=== PATIENT | male | born 1940 | race Caucasian/White ===

== ENCOUNTER → 2020-03-15 | Outpatient (REF) | payer MEDICARE, OTHER | LOC: M LAB REF 17:35 | PROVIDERS: ATTEND Physician Assistant | DX: C44.519 Basal cell carcinoma of skin of other part of trunk (principal) | CPT/HCPCS: 11102; 11103; 88305; G0463 ==

== ENCOUNTER → 2023-01-24 | Outpatient (REF) | payer MEDICARE, OTHER | LOC: M SFHCDERM 14:17 | PROVIDERS: ATTEND Physician Assistant | DX: C44.01 Basal cell carcinoma of skin of lip (principal) ==

== ENCOUNTER → 2023-07-25 | Outpatient (REF) | payer MEDICARE, OTHER | LOC: M SFHCDERM 17:45 | PROVIDERS: ATTEND Physician Assistant | DX: C44.41 Basal cell carcinoma of skin of scalp and neck (principal) ==

== ENCOUNTER 2023-12-05 10:43 | Day surgery (SDC) | payer MEDICARE, OTHER ==
[~2023-12-05] VITALS: Ht 172.7 cm; Wt 76.2 kg
[~2023-12-05 10:43] MED LIST: ATEN25TA PO; ATOR1TAB19 PO; BRIM5DRO4; DONE10TA90 PO; MIDAZOLAM INJ 2MG/2ML VIAL As Ordered ONE; OMEP-173 PO; THERTAB52 PO; VITA100093 PO; ZOLO100T PO; fentaNYL 100 MCG/2 ML INJECTION As Ordered ONE
[2023-12-05] MEDS: LIDOCAINE 3.5 % 1ML OPHTH TOPICAL GEL OU ONE (11:28)
[2023-12-05] MEDS: mitoMYcin 0.2 MG/VIAL KIT FOR OPHTHALMIC USE As Ordered ONE (12:39)
[2023-12-05] MEDS: TOBRADEX OPHTH OINT 3.5 GM As Ordered ONE (12:40)
[2023-12-05] MEDS: LIDOCAINE 2% W/EPINEPHRINE 20ML VIAL **PRES FREE As Ordered ONE (12:40)
[2023-12-05] MEDS ORDERED: NALOXONE INJ 0.4MG/1ML VIAL As Ordered ONE (12:46)
[2023-12-05] MEDS ORDERED: flumazeniL 0.5MG/5ML VIAL As Ordered ONE (12:46)
[2023-12-05 13:09] VITALS: BP 158/64; TEMP 97.6; O2SAT 98
== END 2023-12-05 13:50 | disposition home or self-care (01) ==
LOC: M SDC 10:43
PROVIDERS: ATTEND Ophthalmology
DX: H40.1121 Primary open-angle glaucoma, left eye, mild stage (principal); I10 Essential (primary) hypertension; Z79.899 Other long term (current) drug therapy
CPT/HCPCS: 66183; C1783; J2250; J2310; J3010; J7315

== ENCOUNTER 2024-02-06 10:04 | Day surgery (SDC) | payer MEDICARE, OTHER ==
[~2024-02-06] VITALS: Ht 170.2 cm; Wt 73.8 kg
[~2024-02-06 10:04] MED LIST changes: +ACET500C10 PO; +LATA1DRO OU; +LIDOCAINE 1% SDV 5ML VIAL As Ordered ONE; +LIDOCAINE 3.5 % 1ML OPHTH TOPICAL GEL OU ONE; -MIDAZOLAM INJ 2MG/2ML VIAL As Ordered ONE; +OMEG10002 PO; -fentaNYL 100 MCG/2 ML INJECTION As Ordered ONE
[2024-02-06] MEDS ORDERED: MIDAZOLAM INJ 2MG/2ML VIAL As Ordered ONE (10:37)
[2024-02-06] MEDS ORDERED: fentaNYL 100 MCG/2 ML INJECTION As Ordered ONE (10:38)
[2024-02-06] MEDS: LIDOCAINE 2% W/EPINEPHRINE 20ML VIAL **PRES FREE As Ordered ONE (11:14)
[2024-02-06] MEDS: TOBRADEX OPHTH OINT 3.5 GM As Ordered ONE (11:14)
[2024-02-06] MEDS: mitoMYcin 0.2 MG/VIAL KIT FOR OPHTHALMIC USE As Ordered ONE (11:15)
[2024-02-06] MEDS ORDERED: LABETALOL 100MG/20ML VIAL As Ordered ONE (11:22)
[2024-02-06 13:11] LABS: HEPATITIS B SURFACE ANTIGEN NEGATIVE (NEGATIVE)
[2024-02-06] MEDS ORDERED: NORV5TAB PO (13:30)
[2024-02-06 13:55] VITALS: BP 165/79
[2024-02-06] MEDS: atenoloL 25 MG TAB PO ONE (13:55)
[2024-02-06 14:45] VITALS: BP 162/72; TEMP 98; O2SAT 97
[2024-02-06 14:57] LABS: HIV 1&2 SCREEN NEGATIVE (NEGATIVE)
== END 2024-02-06 14:50 | disposition home or self-care (01) ==
LOC: M SDC 10:04
PROVIDERS: ATTEND Ophthalmology
DX: H40.1111 Primary open-angle glaucoma, right eye, mild stage (principal); I16.9 Hypertensive crisis, unspecified; E78.5 Hyperlipidemia, unspecified; R94.31 Abnormal electrocardiogram [ECG] [EKG]; K21.9 Gastro-esophageal reflux disease without esophagitis; F03.90 Unspecified dementia, unspecified severity, without behavioral disturbance, psychotic disturbance, mood disturbance, and anxiety; R41.1 Anterograde amnesia; F41.9 Anxiety disorder, unspecified; Z79.899 Other long term (current) drug therapy; Z98.41 Cataract extraction status, right eye; Z98.42 Cataract extraction status, left eye
CPT/HCPCS: 36415; 66183; 86803; 87340; 87389; C1783; J1920; J2250; J3010; J7315